=== PATIENT | female | born 1965 | race African-American/Black ===

== ENCOUNTER → 2019-05-16 | Outpatient (CLI) | payer OTHER ==
[2015-04-30 23:42] VITALS: BP 161/64
--- NOTE | 2019-05-16 14:11 | KCIC ---
EXAM: Chest, single view. HISTORY: Positive tuberculin skin test. COMPARISON: None. FINDINGS: A frontal view of the chest is obtained. There is no infiltrate, pleural effusion or pneumothorax. There is biapical emphysema with subpleural bleb formation. The heart is normal in size. IMPRESSION: 1. No acute pulmonary finding or evidence of pulmonary tuberculosis. 2. Biapical emphysema. Electronically signed by: Katherine Oakes MD (05/16/2019 2:08 PM) [place] [id number]
== END | disposition home or self-care (01) ==
LOC: KCIC 10:47
PROVIDERS: ATTEND Family Medicine
DX: J43.8 Other emphysema (principal)
CPT/HCPCS: 71045